=== PATIENT | male | born 1945 | race Caucasian/White ===

== ENCOUNTER 2021-01-24 07:49 | Emergency (ER) | payer MEDICARE ==
[2021-01-24 09:25] LABS: HEMOGLOBIN 12.9 gm/dl (14.0-17.5); RED BLOOD COUNT 4.46 M/UL (4.20-5.50); WHITE BLOOD COUNT 6.5 K/UL (4.5-11.0)
[2021-01-24 09:50] LABS: BUN/CREATININE RATIO 11 (0-10)
[2021-01-24] MEDS ORDERED: ZOFRAN4 MG PO (11:11)
== END 2021-01-24 11:40 | disposition home or self-care (01) ==
LOC: ER1 07:49
PROVIDERS: Physician Assistant
DX: K52.9 Noninfective gastroenteritis and colitis, unspecified (principal); I88.0 Nonspecific mesenteric lymphadenitis; K21.9 Gastro-esophageal reflux disease without esophagitis; I10 Essential (primary) hypertension; Z87.442 Personal history of urinary calculi; Z90.49 Acquired absence of other specified parts of digestive tract; Z88.1 Allergy status to other antibiotic agents; Z87.891 Personal history of nicotine dependence
CPT/HCPCS: 80053; 85025; 96374; 96375; 96376; 99284; J2270; J2405; Q9967

== ENCOUNTER → 2021-04-24 | Outpatient (CLI) | payer MEDICARE ==
[~2021-04-24] MED LIST: ZOFRAN4 MG PO
== END ==
LOC: RT 16:44
DX: Z01.810 Encounter for preprocedural cardiovascular examination (principal)
CPT/HCPCS: 93005

== ENCOUNTER → 2021-07-05 | Outpatient (CLI) | payer MEDICARE | LOC: NM 09:52 | DX: K29.70 Gastritis, unspecified, without bleeding (principal) | CPT/HCPCS: 78264; A9541 ==

== ENCOUNTER → 2021-09-23 | Outpatient (CLI) | payer MEDICARE | LOC: CT 06:21 | DX: R19.00 Intra-abdominal and pelvic swelling, mass and lump, unspecified site (principal) | CPT/HCPCS: 36415; 82565; Q9967 ==